=== PATIENT | female | born 1995 | race Two or more races ===

== ENCOUNTER 2017-11-25 17:11 | Emergency (ER) | payer OTHER ==
[~2017-11-25] VITALS: Ht 162.6 cm; Wt 127.5 kg
[~2017-11-25 17:11] MED LIST: AMOX1TAB12 PO; CATAFLAM50 MG PO; CEPHALEXIN500 MG PO; CLARITIN10 MG; ENALAPRIL MALEA20 MG; MONTELUKAST; PHENABID D1 TAB.SR . PO; SINGULAIR10 MG; TOPROL XL25 MG
== END 2017-11-25 23:02 | disposition home or self-care (01) ==
LOC: ER 17:11
DX: M54.5 Low back pain (principal)

== ENCOUNTER 2018-01-08 12:25 | Emergency (ER) | payer OTHER ==
[~2018-01-08] VITALS: Ht 157.5 cm; Wt 133.4 kg
[~2018-01-08 12:25] MED LIST changes: +IBUPROFEN800 MG PO; +TUSSI PRES-B L120 M1 PO
[2018-01-08] MEDS ORDERED: TOPROL XL50 M1 (12:35)
== END 2018-01-08 18:34 | disposition home or self-care (01) ==
LOC: ER 12:25
DX: R07.89 Other chest pain (principal); I10 Essential (primary) hypertension; M54.2 Cervicalgia; J32.8 Other chronic sinusitis; E66.9 Obesity, unspecified

== ENCOUNTER 2018-03-18 14:04 | Outpatient (CLI) | payer OTHER ==
[~2018-03-18 14:04] MED LIST changes: +TOPROL XL50 M1
== END 2018-03-18 14:08 | disposition home or self-care (01) ==
LOC: RAD 14:04
DX: M21.752 Unequal limb length (acquired), left femur (principal)

== ENCOUNTER 2018-03-21 18:56 | Emergency (ER) | payer OTHER ==
[~2018-03-21] VITALS: Ht 162.6 cm; Wt 136.1 kg
[2018-03-21] MEDS ORDERED: PANADOL EXTRA500 MG (19:24)
== END 2018-03-21 22:10 | disposition home or self-care (01) ==
LOC: ER 18:56
DX: M25.561 Pain in right knee (principal)

== ENCOUNTER 2018-08-03 22:54 | Emergency (ER) | payer OTHER ==
[~2018-08-03] VITALS: Ht 162.6 cm; Wt 126.1 kg
[~2018-08-03 22:54] MED LIST changes: +PANADOL EXTRA500 MG
[2018-08-03] MEDS ORDERED: NORVASC5 MG (23:30)
[2018-08-03] MEDS ORDERED: COZAAR100 MG (23:30)
[2018-08-04] MEDS ORDERED: KETO10TA2 PO (01:17)
[2018-08-04] MEDS ORDERED: NORFLEX100MG PO (01:17)
== END 2018-08-04 01:25 | disposition home or self-care (01) ==
LOC: ER 22:54
DX: M54.5 Low back pain (principal)

== ENCOUNTER 2020-09-21 11:32 | Emergency (ER) | payer OTHER ==
[~2020-09-21] VITALS: Ht 162.6 cm; Wt 130.6 kg
[~2020-09-21 11:32] MED LIST changes: +COZAAR100 MG; +KETO10TA2 PO; +NORFLEX100MG PO; +NORVASC5 MG
[2020-09-21] MEDS ORDERED: KETO10TA2 PO (14:10)
[2020-09-21] MEDS ORDERED: NORFLEX100MG PO (14:10)
== END 2020-09-21 14:15 | disposition home or self-care (01) ==
LOC: ER 11:32
DX: S13.4XXA Sprain of ligaments of cervical spine, initial encounter (principal); S60.211A Contusion of right wrist, initial encounter; V49.9XXA Car occupant (driver) (passenger) injured in unspecified traffic accident, initial encounter; Y93.89 Activity, other specified; Y92.488 Other paved roadways as the place of occurrence of the external cause; Y99.8 Other external cause status

== ENCOUNTER 2020-10-17 19:15 | Emergency (ER) | payer OTHER ==
[~2020-10-17] VITALS: Ht 162.6 cm; Wt 134.3 kg
[2020-10-17] MEDS ORDERED: TOPROL XL50 M1 (19:40)
[2020-10-17] MEDS ORDERED: ZITHROMAX500 MG PO (23:02)
== END 2020-10-17 23:12 | disposition home or self-care (01) ==
LOC: ER 19:15
DX: B34.8 Other viral infections of unspecified site (principal)

== ENCOUNTER 2024-09-21 10:14 | Emergency (ER) | payer OTHER ==
[~2024-09-21] VITALS: Ht 162.6 cm; Wt 151.5 kg
[~2024-09-21 10:14] MED LIST changes: +ZITHROMAX500 MG PO
[2024-09-21] MEDS ORDERED: NORVASC2.5 M1 (11:00)
[2024-09-21] MEDS ORDERED: 0.9 % SODIUM CHLORIDE 1,000 ML IV SCH (11:30)
[2024-09-21 12:42] LABS: PH,URINE 5.5 (5.0-8.0); URINE APPEARANCE Clear; URINE BILIRRUBIN Negative (NEGATIVE); URINE BLOOD Negative; URINE COLOR Yellow; URINE KETONE Negative (NEGATIVE); URINE LEUKOCYTE Negative; URINE NITRATE Negative; URINE PROTEIN Negative (NEGATIVE); URINE UROBILINOGEN 0.2 E.U./dl
[2024-09-21 12:43] LABS: URINE BACTERIA 5083.1 uL (0.0-1933); URINE CAST 0.14 uL (0.0-1.40); URINE EPITHELIAL CELLS 31.6 uL (0.0-38.8); URINE GLUCOSE 500 MG/DL (NEGATIVE); URINE WBC 18.9 uL (0.0-23.2)
[2024-09-21 12:59] LABS: CALCIUM 8.9 mg/dL (8.5-10.1); CREATININE SERUM 0.84 mg/dL (0.55-1.02); GFR 81.33; POTASSIUM 3.94 mEq/L (3.5-5.1)
[2024-09-21 14:22] LABS: BASO % 0.2 % (0.1-1.2); EOS % 0.7 % (0.7-7.0); HEMOGLOBIN 14.7 g/dL (11.2-15.7); LYMPH % 11.8 % (19.3-53.1); MEAN CORPUSCULAR HEMOGLOBIN 28.6 pg (25.6-32.2); MONO % 9.5 % (4.7-12.5); NEUT % 76.7 % (34.0-71.1); PLATELET COUNT 299 K/uL (163-369); RED BLOOD COUNT 5.14 M/uL (3.93-5.22); RED CELL DISTRIBUTION WIDTH 14.2 % (11.6-14.4)
[2024-09-21 14:23] LABS: EOS # 0.08 (0.04-0.54); LYMPH # 1.45 (1.18-3.74); MONO # 1.17 (0.24-0.82); NEUT # 9.41 (1.56-6.13)
== END 2024-09-21 16:05 | disposition home or self-care (01) ==
LOC: ER 10:14
PROVIDERS: Emergency Medicine
DX: R10.9 Unspecified abdominal pain (principal); I10 Essential (primary) hypertension; Z91.013 Allergy to seafood

== ENCOUNTER 2024-10-04 22:18 | Inpatient (IN) | payer OTHER ==
[~2024-10-04] VITALS: Ht 152.4 cm; Wt 145.1 kg
[~2024-10-04 22:18] MED LIST changes: +NORVASC2.5 M1
--- NOTE | 2024-10-04 22:42 | NUR ---
SE RECIBE PTE ALERTA Y ORIENTADA LA CUAL REFIERE VENIR POR DOLOR EPIGASTRICO, NAUSEAS, VOMITOS Y DIARREAS DESDE LA MANANA DE HOY. SE MIDEN S/V Y SE REALIZA EKG A PTE. PTE SE UBICA EN AREA.
[2024-10-05] MEDS ORDERED: FAMOTIDINE/PF 20 MG/2 ML VIAL IV PUSH STA (00:18)
[2024-10-05] MEDS ORDERED: PROMETHAZINE HCL 50 MG/ML AMPUL IM STA (00:18)
--- NOTE | 2024-10-05 00:29 | NUR ---
SE NOTIFICA A SONOGRAFISTA MARY DE SONOGRAMA PENDIENTE.
[2024-10-05] MEDS ORDERED: 0.9 % SODIUM CHLORIDE 1,000 ML IV ONE (00:30)
--- NOTE | 2024-10-05 01:08 | NUR ---
SE ORIENTA A PTE SOBRE TX MEDICO Y LA MISMA REFIERE ENTENDER Y ACEPTAR. SE CANALIZA Y SE COELCTAN MUESTRAS DE LAB, SE ADMINISTRAN MEDS BALTAZAR ORDEN MEDICA
[2024-10-05 01:16] LABS: BASO % 0.2 % (0.1-1.2); EOS # 0.04 (0.04-0.54); EOS % 0.3 % (0.7-7.0); LYMPH # 0.42 (1.18-3.74); LYMPH % 3.5 % (19.3-53.1); MEAN PLATELET VOLUME 9.50 fl (9.4-12.4); MONO # 1.31 (0.24-0.82); MONO % 10.9 % (4.7-12.5); NEUT # 10.15 (1.56-6.13); NEUT % 84.4 % (34.0-71.1); RED CELL DISTRIBUTION WIDTH 14.5 % (11.6-14.4)
[2024-10-05 02:07] LABS: ALT/SGPT 55.0 U/L (12-78); AST/SGOT 22.0 U/L (15-37); BILIRUBIN TOTAL 0.57 mg/dL (0.3-1.2); BUN CREA RATIO 14.0 (7.0-25.0); CREATININE SERUM 0.86 mg/dL (0.55-1.02); GFR 79.15; GLOBULINA 3.6 G/DL (2.4-3.5); GLUCOSE FASTING 159.0 mg/dL (65-100); OSMOLALITY SERUM 286.0 MOSM/KG (275-295)
[2024-10-05 03:12] LABS: URINE APPEARANCE Cloudy; URINE BILIRRUBIN Negative (NEGATIVE); URINE BLOOD Trace; URINE COLOR Yellow; URINE GLUCOSE Negative (NEGATIVE); URINE KETONE 15 (NEGATIVE); URINE LEUKOCYTE Moderate; URINE NITRATE Negative; URINE PROTEIN 30 (NEGATIVE); URINE UROBILINOGEN 0.2 E.U./dl
[2024-10-05 03:17] LABS: URINE BACTERIA 3747.7 uL (0.0-1933); URINE CAST 6.03 uL (0.0-1.40); URINE EPITHELIAL CELLS 154.5 uL (0.0-38.8); URINE RBC 6.3 uL (0.0-20.8); URINE WBC 96.2 uL (0.0-23.2)
[2024-10-05 03:43] LABS: URINE MUCUS MODERATE
[2024-10-05] MEDS ORDERED: CEFTRIAXONE SODIUM 1,000 MG VIAL IV STA (04:14)
[2024-10-05] MEDS ORDERED: PIPERACILLIN/TAZOBACTAM SODIUM 3.375 GM in 0.9 % SODIUM CHLORIDE 100 ML IV SCH (07:42)
--- NOTE | 2024-10-05 08:12 | NUR ---
SE ADMINISTRA TX BALTAZAR ORDEN MEDICA BAJO MEDIDAS ASEPTICAS. SE ORIENTA PTE QUIEN REFIERE ENTENDER Y ACEPTAR
[2024-10-05] MEDS ORDERED: ORPHENADRINE CITRATE 30 MG/ML AMPUL IV STA (14:28)
[2024-10-05] MEDS ORDERED: AMLODIPINE BESYLATE 5 MG TABLET PO SCH (14:28)
[2024-10-05] MEDS ORDERED: METOPROLOL SUCCINATE 50 MG TAB.SR.24H PO SCH (14:29)
[2024-10-05] MEDS ORDERED: MORPHINE SULFATE 2 MG/ML CARTRIDGE IV PRN (14:30)
[2024-10-05] MEDS ORDERED: ONDANSETRON HCL 4 MG in DEXTROSE 5 % IN WATER 50 ML IV PRN (14:30)
[2024-10-05] MEDS ORDERED: ENALAPRILAT DIHYDRATE 1.25 MG/ML VIAL IV PRN (14:30)
[2024-10-05] MEDS ORDERED: RINGERS SOLUTION,LACTATED 1,000 ML IV SCH (14:45)
[2024-10-05] MEDS ORDERED: ENOXAPARIN SODIUM 40 MG/0.4 ML SYRINGE SUBCUTANEO SCH (14:57)
[2024-10-05] MEDS ORDERED: LOSARTAN POTASSIUM 100 MG TABLET PO SCH (14:58)
[2024-10-05 16:16] VITALS: BP 137/85
[2024-10-05] MEDS ORDERED: PIPERACILLIN/TAZOBACTAM SODIUM 3.375 GM in DEXTROSE 5 % IN WATER 100 ML IV SCH (18:00)
[2024-10-05 19:40] LABS: INR 1.13
[2024-10-05] MEDS ORDERED: FAMOTIDINE/PF 20 MG/2 ML VIAL IV SCH (21:00)
[2024-10-06 06:35] LABS: BASO % 0.1 % (0.1-1.2); EOS # 0.08 (0.04-0.54); EOS % 1.1 % (0.7-7.0); LYMPH # 1.17 (1.18-3.74); LYMPH % 15.8 % (19.3-53.1); MEAN PLATELET VOLUME 10.00 fl (9.4-12.4); MONO # 1.29 (0.24-0.82); NEUT # 4.80 (1.56-6.13); NEUT % 64.8 % (34.0-71.1); RED CELL DISTRIBUTION WIDTH 14.5 % (11.6-14.4)
[2024-10-06 06:38] LABS: ALT/SGPT 42.0 U/L (12-78); AST/SGOT 20.0 U/L (15-37); BILIRUBIN TOTAL 0.3 mg/dL (0.3-1.2); BUN CREA RATIO 10.0 (7.0-25.0); CREATININE SERUM 0.79 mg/dL (0.55-1.02); GFR 87.3; GLOBULINA 3.8 G/DL (2.4-3.5); GLUCOSE FASTING 143.0 mg/dL (65-100); OSMOLALITY SERUM 284.0 MOSM/KG (275-295)
[2024-10-06 07:31] LABS: MONO % 17.4 % (4.7-12.5)
[2024-10-06 09:37] VITALS: BP 196/110
[2024-10-06] MEDS ORDERED: hydrALAZINE HCL 20 MG VIAL IV PRN (16:45)
[2024-10-06 18:42] VITALS: BP 150/85
[2024-10-06 18:56] VITALS: BP 150/90
[2024-10-07 01:26] VITALS: BP 144/94; O2SAT 98
[2024-10-07 07:26] LABS: CHOL HDL RATIO 4.7 (0-5.0); HDL 33.0 mg/dl (40-60); LDL 94.0 mg/dl (0-130); VLDL 29.0 (0-39)
[2024-10-07 07:31] LABS: TSH 0.306 uIU/mL (0.358-3.74)
[2024-10-07 09:07] VITALS: BP 134/81; O2SAT 98
[2024-10-07] MEDS ORDERED: DEXTROSE 50 % IN WATER 0.5 G/ML VIAL IV PRN (10:15)
[2024-10-07] MEDS ORDERED: INSULIN LISPRO 1,000 UNIT/10 ML UNITS SUBCUTANEO PRN (10:15)
[2024-10-07] MEDS ORDERED: ONDANSETRON HCL 2 MG/ML VIAL IV PRN (14:00)
[2024-10-07 21:17] VITALS: BP 160/85
[2024-10-08 00:17] VITALS: BP 151/75
[2024-10-08 02:42] VITALS: BP 154/81; O2SAT 97
[2024-10-08 06:21] LABS: BASO % 0.1 % (0.1-1.2); EOS # 0.07 (0.04-0.54); EOS % 0.8 % (0.7-7.0); LYMPH # 0.93 (1.18-3.74); LYMPH % 10.5 % (19.3-53.1); MEAN PLATELET VOLUME 9.60 fl (9.4-12.4); MONO # 0.99 (0.24-0.82); MONO % 11.2 % (4.7-12.5); NEUT # 6.79 (1.56-6.13); NEUT % 76.7 % (34.0-71.1); RED CELL DISTRIBUTION WIDTH 14.0 % (11.6-14.4)
[2024-10-08 06:57] LABS: ALT/SGPT 208.0 U/L (12-78); AST/SGOT 112.0 U/L (15-37); BILIRUBIN TOTAL 0.29 mg/dL (0.3-1.2); BUN CREA RATIO 8.0 (7.0-25.0); CREATININE SERUM 0.73 mg/dL (0.55-1.02); GFR 95.63; GLOBULINA 3.2 G/DL (2.4-3.5); GLUCOSE FASTING 199.0 mg/dL (65-100); OSMOLALITY SERUM 288.0 MOSM/KG (275-295)
[2024-10-08] MEDS ORDERED: ACETAMINOPHEN 500 MG GEL..CAP PO PRN (08:30)
[2024-10-08 09:12] VITALS: BP 156/90; O2SAT 99
[2024-10-08] MEDS ORDERED: POTASSIUM CHLORIDE 20MEQ/100ML H2O PB IV STA (13:03)
[2024-10-08] MEDS ORDERED: POTASSIUM BICARBONATE/CIT AC 25 MEQ TABLET.EFF PO STA (13:04)
[2024-10-08] MEDS ORDERED: AMLODIPINE BESYLATE 5 MG TABLET PO SCH (17:00)
[2024-10-08 18:02] VITALS: BP 160/85
[2024-10-08 22:06] VITALS: BP 152/90; O2SAT 98
[2024-10-08 22:22] VITALS: BP 144/89; O2SAT 99
[2024-10-08] MEDS ORDERED: GUAIFENESIN 100 MG/5 ML BLIST.PACK PO PRN (22:30)
[2024-10-09 01:31] VITALS: BP 156/94; O2SAT 97
[2024-10-09 09:16] VITALS: BP 127/70; O2SAT 97
[2024-10-09] MEDS ORDERED: TOPROL XL50 M1 PO (13:40)
[2024-10-09] MEDS ORDERED: AMLODIPINE BESYL5 MG PO (13:40)
[2024-10-09] MEDS ORDERED: LOSARTAN POTAS100 MG PO (13:40)
[2024-10-09] MEDS ORDERED: METFORMIN HCL500 M2 PO (13:41)
[2024-10-09] MEDS ORDERED: LEVOFLOXACIN750 MG PO (13:45)
[2024-10-09] MEDS ORDERED: METRONIDAZOLE500 MG PO (13:45)
[2024-10-09] MEDS ORDERED: INTESTINEX680 M1 PO (13:46)
[2024-10-09] MEDS ORDERED: TRAM1TAB98 PO (13:47)
== END 2024-10-09 14:56 | disposition home or self-care (01) | DRG 690 ==
LOC: ER 22:29 → SEC-K 10-05 17:02 → MEDI 10-05 17:02
PROVIDERS: General Practice; ADMIT Internal Medicine; ATTEND Internal Medicine
PROC: BW40ZZZ Ultrasonography of Abdomen (ICD-10-PCS; principal; 2024-10-05)
DX: N39.0 Urinary tract infection, site not specified (principal); K81.0 Acute cholecystitis; E11.65 Type 2 diabetes mellitus with hyperglycemia; I10 Essential (primary) hypertension; Z79.4 Long term (current) use of insulin; E66.813 Obesity, class 3